=== PATIENT | female | born 1965 | race African-American/Black ===

== ENCOUNTER 2020-01-14 11:28 | Emergency (ER) | payer OTHER, SELFPAY ==
[2020-01-14 11:53] VITALS: BP 151/93; PULSE 81; RESP 18; TEMP 36.4; O2SAT 100
--- NOTE | 2020-01-14 12:14 | ED.BACK ---
HPI - Back Pain/Injury General Chief Complaint: Back Pain/Injury Stated Complaint: Severe back pain Time Seen by Provider: 01/14/20 12:14 Source: patient Mode of arrival: ambulatory Limitations: no limitations History of Present Illness HPI Narrative: Gail Cavanaugh is a 54 yo female with a PMH of HTN, lupus, who comes to express care with lower back pain that she is attributing to a lupus flareup. She has had this lower back pain since yesterday morning. Denies any dysuria. she had her last flare last month and received medication for her primary care physician. Related Data Home Medications Medication Instructions Recorded Confirmed hydroxychloroquine 01/14/20 lisinopril-hydrochlorothiazide tablet 01/14/20 Allergies Allergy/AdvReac Type Severity Reaction Status Date / Time No Known Allergies Allergy Verified 01/14/20 11:51 Review of Systems Review of Systems: Narrative: CONSTITUTIONAL: Denies fever, chills, sweats. EYES: Denies visual changes, redness, discharge. ENT: Denies rhinorrhea, congestion, sore throat, otalgia. CARDIOVASCULAR: Denies chest pain, palpitations, edema. RESPIRATORY: Denies dyspnea, wheezing, cough GASTROINTESTINAL: Denies abdominal pain, nausea, vomiting, diarrhea. GENITOURINARY: Denies dysuria, hematuria, abnormal discharge SKIN: Denies rash or itching. NEUROLOGIC: Denies numbness, or focal weakness. PSYCHIATRIC: Denies anxiety or depression. Lower back pain is attributed to a lupus flareup- denies any dysuria PMFSH Past Medical History Medical History HTN (hypertension) Lupus Family History Family History (Updated 01/14/20 @ 12:24 by Wanda Iverson CNP) Mother Ovarian cancer Comments At time of signature, I agree with nursing past medical, surgical, social and family history. There is no relevant family history pertinent to the presenting complaint. Exam Narrative: Exam Narrative: GENERAL: This is a well-nourished, well-developed patient, in moderate distress. HEAD: normocephalic, atraumatic. EYES: Sclera clear/white. Vision is grossly intact. EARS: External ears normal, Hearing grossly intact. NOSE: External nose normal without nasal discharge, nares without redness, no rhinorrhea. THROAT: Mucous membranes moist, NECK: Neck supple, CARDIOVASCULAR: Regular rate and rhythm without murmurs, gallops, or rubs. RESPIRATORY: Clear to auscultation. Breath sounds equal bilaterally. No wheezes, rales, or rhonchi. GASTROINTESTINAL: Abdomen soft, SKIN: warm, intact with no suspicious lesions or rash, good texture and turgor. NEURO: awake, alert, and oriented to person, place and time. There were no obvious focal neurologic abnormalities. Steady gait EXTREMITIES: Normal range of motion. BACK: tender without deformity- pain with twisting and able to bend forward but hurts as stands up Course Course Emergency Course: Patient is here with lower back pain that started yesterday-has history of lupus flares Given 60 mg of prednisone here plan is to give Medrol Dosepak as well as baclofen. with pain on twisting, can't exclude muscular origin of pain. Discussed with patient limitations of using steroids on a regular basis and that she should get additional steroids for lupus from her primary care physician who is treating her lupus Follow-up with primary care Vital Signs Vital signs: Vital Signs Temperature 97.6 F 01/14/20 11:53 Pulse Rate 81 01/14/20 11:53 Respiratory Rate 18 01/14/20 11:53 Blood Pressure 151/93 H 01/14/20 11:53 Pulse Oximetry 100 01/14/20 11:53 Temperature 97.6 F 01/14/20 11:53 Pulse Rate 81 01/14/20 11:53 Respiratory Rate 18 01/14/20 11:53 Blood Pressure 151/93 H 01/14/20 11:53 Pulse Oximetry 100 01/14/20 11:53 MDM - Back Pain/Injury Differential Diagnosis Differential diagnosis: Likely sciatica and other (Lupus flare) Discharge Plan Discharge Clinical Impr
[2020-01-14] MEDS: predniSONE 20 MG TABLET 60 MG PO (12:31)
== END 2020-01-14 12:51 | disposition home or self-care (01) ==
PROVIDERS: Emergency Provider Nurse Practitioner; PCP Internal Medicine
DX: M54.5 Low back pain (principal); I10 Essential (primary) hypertension
CPT/HCPCS: 99213; G0463; J7512

== ENCOUNTER 2020-03-12 11:11 | Outpatient (NON) | payer OTHER, SELFPAY ==
[2020-03-12 23:32] LABS: SARS-CoV-2 RNA PCR Negative
== END 2020-03-12 11:12 ==
PROVIDERS: PCP Internal Medicine; Visit Provider Internal Medicine
DX: R53.83 Other fatigue (principal); R68.83 Chills (without fever); Z20.828 Contact with and (suspected) exposure to other viral communicable diseases
CPT/HCPCS: 87635; C9803; U0003

== ENCOUNTER 2020-06-12 09:34 | Emergency (ER) | payer OTHER, SELFPAY ==
--- NOTE | ~2020-06-12 | XR_ITS ---
EXAMINATION: XR chest 2V EXAM DATE: 06/12/2020 10:00 INDICATION: Midsternal chest pain since Wednesday. TECHNIQUE: Frontal and lateral projections of the chest obtained and reviewed. There is no prior leila dy for comparison. FINDINGS: The lungs are clear. There are no pleural effusions. The cardiomediastinal silhouette is within normal limits. There is no pneumothorax suspected. The bones and soft tissues are unremarkab le. IMPRESSION: No acute cardiopulmonary findings. Reviewed, dictated and finalized at location B. HOLOGY INTERN
[2020-06-12 09:40] VITALS: BP 151/93; PULSE 95; RESP 19; TEMP 36.8; O2SAT 100
--- NOTE | 2020-06-12 09:40 | ECG_ITS ---
Measurements Intervals [place] Rate: 92 P: 33 MN: 132 QRS: 39 QRSD: 107 T: 28 QT: 289 QTc: 357 Interpretive Statements SINUS RHYTHM NONSPECIFIC T-WAVE ABNORMALITY- DIFFUSE LEADS BORDERLINE ECG Electronically Signed On 06-12-2020 10:18:17 WEATHER CLERK by Caleb Fernandez D.O.
[2020-06-12 09:43] VITALS: PULSE 90
--- NOTE | 2020-06-12 10:00 | PC.NURSE ---
IV attempted x3 without success by multiple nurses, EDP aware and ok without IV at this time.
[2020-06-12] MEDS: ASPIRIN 81 MG CHEWABLE TABLET 324 MG PO (10:14)
[2020-06-12 10:29] LABS: Basophils Percent Auto 0.6 % (0.2-1.2); Eosinophils Absolute Auto 0.1 K/mm3 (0-0.3); Eosinophils Percent Auto 1.9 % (0-4.4); Immature Granulocyte Absolute 0.02 K/mm3 (0.00-0.031); Immature Granulocyte Percent A 0.4 % (0-0.5); Lymphocytes Absolute Auto 1.61 K/mm3 (0.9-3.2); Lymphocytes Percent Auto 30.6 % (18.3-44.2); Mean Corpuscular HGB Conc 33.3 g/dl (32-36); Mean Corpuscular Hemoglobin 33.1 pg (26-34); Mean Corpuscular Volume 99.3 fl (80-100); Mean Platelet Volume 10.6 fl (7.4-10.4); Monocytes Absolute Auto 0.5 K/mm3 (0.1-0.6); Monocytes Percent Auto 10.3 % (2.6-8.5); Neutrophils Percent Auto 56.2 % (45.5-73.1); Platelet Count Result 161 k/mm3 (150-375); Red Blood Count 4.23 M/mm3 (4.2-5.4); Red Cell Distribution Width 12.1 % (11.5-14.5); White Blood Count 5.3 K/mm3 (4.5-10.0)
[2020-06-12 10:39] LABS: INR 0.9; Prothrombin Time 12.8 Seconds (11.1-14.7)
[2020-06-12 10:40] LABS: Partial Thromboplastin Time 29.2 SECONDS (22.3-36.8)
[2020-06-12 10:41] LABS: Anion Gap 4 mmol/L (8-16); Blood Urea Nitrogen 16 mg/dL (7-17); Calcium 9.4 mg/dL (8.4-10.2); Carbon Dioxide 35 mmol/L (22-30); Chloride 102 mmol/L (98-107); Estimated CRCL calculation 42 ml/min; Estimated Glomerular Filt Rate 47; Glucose 81 mg/dL (65-105); Potassium 3.4 mmol/L (3.4-5.0); Sodium 141 mmol/L (137-145)
[2020-06-12 10:54] LABS: Troponin I 0.034 ng/mL (0.000-0.034)
[2020-06-12 11:11] VITALS: BP 146/79; PULSE 86; RESP 18; O2SAT 98
--- NOTE | 2020-06-12 11:54 | ED.CHESTPAIN ---
HPI - Chest Pain General Chief Complaint: Chest Pain Stated Complaint: cp/sob Time Seen by Provider: 06/12/20 09:37 History of Present Illness HPI narrative: Patient is a 54-year-old female who presents ER with intermittent chest pains the left side of her chest for the last 2 weeks. Worsened last night. Worse with direct palpation. No difficulty breathing. No runny nose/sore throat/productive cough. No history of coronary disease. Has not tried any pain medications. No exertional CP. W/o diaphoresis/n/v. Related Data Home Medications Medication Instructions Recorded Confirmed hydroxychloroquine 01/14/20 lisinopril-hydrochlorothiazide tablet 01/14/20 Allergies Allergy/AdvReac Type Severity Reaction Status Date / Time No Known Allergies Allergy Verified 06/12/20 09:44 Review of Systems Review of Systems: All systems reviewed & are unremarkable except as noted in HPI and below Constitutional: Constitutional: Denies chills, Denies fever(s) and Denies weakness ENT: Denies nasal congestion and Denies sore throat Cardiovascular: Cardiovascular: Reports chest pain, Denies rapid heart rate and Denies radiating jaw, neck or arm pain Respiratory: Respiratory: Denies cough, Denies dyspnea and Denies wheezing Gastrointestinal: Gastrointestinal: Denies abdominal pain, Denies nausea and Denies vomiting PMFSH Past Medical History Medical History HTN (hypertension) Lupus Family History Family History (Updated 01/14/20 @ 12:24 by Wanda Iverson CNP) Mother Ovarian cancer Exam Narrative: Exam Narrative: GENERAL: Well-appearing, well-nourished, and in no acute distress. HEAD: Normocephalic, atraumatic. CHEST: Clear to auscultation. No respiratory distress. Reproducible chest wall tenderness with light palpation to the left upper chest. HEART: Regular rate and rhythm. Normal peripheral pulses. ABDOMEN: Soft, nontender, nondistended. EXTREMITIES: Normal range of motion. No edema. SKIN: Warm, dry, no rash. NEURO:Alert and oriented x3. PSYCH: Normal mood and affect. Course Course Emergency Course: Atypical chest pain that is reproducible in the ED. Troponin negative. Discharge home with follow-up with PCP. Vital Signs Vital signs: Vital Signs Temperature 98.2 F 06/12/20 09:40 Pulse Rate 95 06/12/20 09:40 Respiratory Rate 19 06/12/20 09:40 Blood Pressure 151/93 H 06/12/20 09:40 Pulse Oximetry 100 06/12/20 09:40 Temperature 98.2 F 06/12/20 09:40 Pulse Rate 86 06/12/20 11:11 Respiratory Rate 18 06/12/20 11:11 Blood Pressure 146/79 H 06/12/20 11:11 Pulse Oximetry 98 06/12/20 11:11 MDM - Chest Pain Lab Data Result diagrams: 06/12/20 10:25 06/12/20 10:25 Labs: Lab Results 06/12/20 06/12/20 06/12/20 Range/Units 10:25 10:25 10:25 WBC 5.3 (4.5-10.0) K/mm3 RBC 4.23 (4.2-5.4) M/mm3 Hgb 14.0 (12.0-15.0) g/dL Hct 42.0 (37.0-47.0) % MCV 99.3 (80-100) fl MCH 33.1 (26-34) pg MCHC 33.3 (32-36) g/dl RDW 12.1 (11.5-14.5) % Plt Count 161 (150-375) k/mm3 MPV 10.6 H (7.4-10.4) fl Immature Gran % (Auto) 0.4 (0-0.5) % Neut % (Auto) 56.2 (45.5-73.1) % Lymph % (Auto) 30.6 (18.3-44.2) % [place] % (Auto) 10.3 H (2.6-8.5) % Eos % (Auto) 1.9 (0-4.4) % Baso % (Auto) 0.6 (0.2-1.2) % Lymph # (Auto) 1.61 (0.9-3.2) K/mm3 [place] # (Auto) 0.5 (0.1-0.6) K/mm3 Eos # (Auto) 0.1 (0-0.3) K/mm3 Baso # (Auto) 0.0 (0.0-0.1) K/mm3 Abs Immat Gran (auto) 0.02 (0.00-0.031) K/mm3 Absolute Neuts (auto) 3.0 (1.3-6.7) K/mm3 Absolute Nucleated RBC 0.0 (0.0-0.012) K/mm3 Nucleated RBC % 0.0 (0.0-0.2) % PT 12.8 (11.1-14.7) Seconds INR 0.9 APTT 29.2 (22.3-36.8) SECONDS Sodium 141 (137-145) mmol/L Potassium 3.4 (3.4-5.0) mmol/L Chloride 102 (98-107) mmol/L Carbon Dioxide 3
== END 2020-06-12 12:10 | disposition home or self-care (01) ==
PROVIDERS: Emergency Provider Emergency Medicine; PCP Internal Medicine
DX: R07.89 Other chest pain (principal); I10 Essential (primary) hypertension
CPT/HCPCS: 36415; 71046; 80048; 84484; 85025; 85610; 85730; 93005; 99284; A9270

== ENCOUNTER 2020-07-20 10:48 | Emergency (ER) | payer OTHER, SELFPAY ==
--- NOTE | ~2020-07-20 | XR_ITS ---
EXAMINATION: XR chest 1V portable DATE: 07/20/2020 12:07 INDICATION: Cough TECHNIQUE: frontal view of the chest was obtained. COMPARISON: Chest radiograph dated 06/12/2020 FINDINGS: The lungs remain clear with no focal airspace opacities, pulmonary edema, pleural effusion or pneumot horax. The cardiomediastinal silhouette is normal. Visualized bones and soft tissues are unremarkable . IMPRESSION: 1. No acute cardiopulmonary disease. Reviewed, dictated and finalized at location A.
[2020-07-20 11:06] VITALS: BP 144/97; PULSE 85; RESP 14; TEMP 37.2; O2SAT 100
--- NOTE | 2020-07-20 12:29 | ED.GENADULT ---
HPI - General Adult General Chief complaint: Upper Respiratory Infection Stated complaint: Possible covid reaction Time Seen by Provider: 07/20/20 11:18 Source: patient and family Mode of arrival: ambulatory Limitations: no limitations History of Present Illness HPI narrative: Patient is a 54-year-old female who presents with cough since receiving her second Covid vaccine earlier in the week patient notes nonproductive cough with frequent coughing causing irritation of the chest denies any fever chills nausea vomiting does note some slight rhinorrhea. Patient denies any dyspnea or other complaints or any history of cardiopulmonary disease has taken Mucinex with improvement and actually feels like she has improved every day Related Data Home Medications Medication Instructions Recorded Confirmed hydroxychloroquine 01/14/20 lisinopril-hydrochlorothiazide tablet 01/14/20 Allergies Allergy/AdvReac Type Severity Reaction Status Date / Time No Known Allergies Allergy Verified 07/20/20 11:08 Review of Systems Review of Systems: All systems reviewed & are unremarkable except as noted in HPI and below PMFSH Past Medical History Medical History HTN (hypertension) Lupus Family History Family History (Updated 01/14/20 @ 12:24 by Wanda Iverson CNP) Mother Ovarian cancer Exam Narrative: Exam Narrative: GENERAL: Well-appearing, well-nourished, and in no acute distress. HEAD: Normocephalic, atraumatic. EYES: PERRLA and EOMI. ENT: Nares clear, no rhinorrhea or epistaxis. Mucous membranes moist. CHEST: Clear to auscultation. No respiratory distress. No wheezes rales or rhonchi HEART: Regular rate and rhythm. No murmur heard. EXTREMITIES: Normal range of motion. No edema. SKIN: Warm, dry, no rash. NEURO: No focal deficits. Alert and oriented x3. PSYCH: Normal mood and affect. Course Course Emergency Course: Patient in the room no distress aware of case findings treatment plan and diagnosis agreeing to follow-up as instructed or to return if symptoms worsen or concerns. Patient with no pneumonia seen on exam normal vital signs will follow with primary care for further evaluation Vital Signs Vital signs: Vital Signs Temperature 98.9 F 07/20/20 11:06 Pulse Rate 85 07/20/20 11:06 Respiratory Rate 14 07/20/20 11:06 Blood Pressure 144/97 H 07/20/20 11:06 Pulse Oximetry 100 07/20/20 11:06 Temperature 98.9 F 07/20/20 11:06 Pulse Rate 85 07/20/20 11:06 Respiratory Rate 14 07/20/20 11:06 Blood Pressure 144/97 H 07/20/20 11:06 Pulse Oximetry 100 07/20/20 11:06 Medical Decision Making MDM Narrative Medical decision making narrative: ABCs and vital signs intact and stable patient with improving upper respiratory symptoms no pneumonia seen on exam or x-ray patient will be discharged home with outpatient follow-up patient did not wish for further evaluation and will follow with primary care and has been given reasons to return hemodynamically stable ABCs and vital signs intact and stable as noted Vital Signs Vital Signs: Vital Signs Temperature 98.9 F 07/20/20 11:06 Pulse Rate 85 07/20/20 11:06 Respiratory Rate 14 07/20/20 11:06 Blood Pressure 144/97 H 07/20/20 11:06 Pulse Oximetry 100 07/20/20 11:06 Temperature 98.9 F 07/20/20 11:06 Pulse Rate 85 07/20/20 11:06 Respiratory Rate 14 07/20/20 11:06 Blood Pressure 144/97 H 07/20/20 11:06 Pulse Oximetry 100 07/20/20 11:06 Imaging Data Radiologist's impression: ITS Impressions Chest X-Ray 07/20/20 12:18 IMPRESSION: 1. No acute cardiopulmonary disease. Discharge Plan Discharge Clinical Impression: Upper respiratory infection Patient Disposition: Home, Self-Care Condition: Stable Instructions: Antibiotic Form, Upper Respiratory Infection (ED) Additional Instructions: Follow up with your primary care pro
[2020-07-20 12:42] VITALS: BP 118/69; PULSE 59; RESP 20; O2SAT 100
== END 2020-07-20 12:43 | disposition home or self-care (01) ==
PROVIDERS: Emergency Provider Emergency Medicine; PCP Internal Medicine
DX: J06.9 Acute upper respiratory infection, unspecified (principal); I10 Essential (primary) hypertension
CPT/HCPCS: 71045; 99283

== ENCOUNTER 2020-12-24 11:39 | Emergency (ER) | payer OTHER, SELFPAY ==
--- NOTE | ~2020-12-24 | XR_ITS ---
XR foot LT min 3V 12/24/2020 12:01 Indication: Left toe pain after trauma Procedure: 4 views left foot Comparison: No prior studies for comparison. Findings: There is an oblique extra-articular fracture left second proximal phalanx with subtle overr iding of fracture fragments in approximately one half bone width lateral displacement. No other fract ure. Lisfranc joint intact. Mild soft tissue swelling. There is a side plate and screws transfixing t he distal fibula, partially visualized. Impression: 1: Oblique extra-articular displaced fracture left second proximal phalanx. Reviewed, dictated and finalized at location A. Impression: 1: Oblique extra-articular displaced fracture left second proximal phalanx.
[2020-12-24 11:48] VITALS: BP 149/77; PULSE 78; RESP 16; TEMP 36.1; O2SAT 98
--- NOTE | 2020-12-24 12:01 | ED.LOWEXIN ---
HPI - Extremity Injury (Lower) General Chief Complaint: Extremity Injury, Lower Stated Complaint: right 2nd digit toe Source: patient and RN notes reviewed Limitations: no limitations History of Present Illness HPI Narrative: The patient, previously mostly healthy, presents with left second toe pain. Patient stubbed her toe today on home furnishings, prior to arrival. She complains of mild to moderate pain that is worse with motion, better at rest; no bleeding, deformity but it is swollen Related Data Home Medications Medication Instructions Recorded Confirmed hydroxychloroquine 01/14/20 lisinopril-hydrochlorothiazide tablet 01/14/20 amlodipine 12/24/20 citalopram mg 12/24/20 zolpidem 12/24/20 Allergies Allergy/AdvReac Type Severity Reaction Status Date / Time No Known Allergies Allergy Verified 07/20/20 11:08 Review of Systems Review of Systems: General/Constitutional: No weight loss,fever Eyes: N0: Redness,discharge Ears/Nose/Throat: No: Epistaxis,ear discharge Respiratory: Denies: Hemoptysis Gastrointestinal: No Vomiting, Bleeding-rectal Skin: No Lumps, eruption Neurologic: No Focal Weakness,Sz Hematologic: Denies: Petechiae/Purpura Psychiatric: No: Suicida ideationl All Other Systems: Reviewed and Negative [facility] Past Medical History Medical History HTN (hypertension) Lupus Family History Family History (Updated 01/14/20 @ 12:24 by Wanda Iverson CNP) Mother Ovarian cancer Comments At time of signature, agree with nursing past medical, surgical, social and family history. There is no relevant family history pertinent to the presenting complaint Exam Narrative: General Appearance: Well appearing, Conjunctiva clear Mouth/Throat: Normal appearing, Normal lips, Supple Respiratory: Airway patent, No respiratory distress MS-toe: Normal strength (mostly intact, limited flexion/extension by pain), Tenderness (proximal phalanges with mild decreased ROM), Swelling (proximal), Other (no anterior drawer, no collateral laxity) Skin: Warm, Dry, Normal color Neurological: A&O x3, Normal affect Course Course Emergency Course: Films visualized, interpreted by radiologist, agree, ABnormal see report Vital Signs Vital signs: Vital Signs Temperature 96.9 F L 12/24/20 11:48 Pulse Rate 78 12/24/20 11:48 Respiratory Rate 16 12/24/20 11:48 Blood Pressure 149/77 H 12/24/20 11:48 Pulse Oximetry 98 12/24/20 11:48 Temperature 96.9 F L 12/24/20 11:48 Pulse Rate 78 12/24/20 11:48 Respiratory Rate 16 12/24/20 11:48 Blood Pressure 149/77 H 12/24/20 11:48 Pulse Oximetry 98 12/24/20 11:48 Discharge Plan Discharge Clinical Impression: Fracture of left toe Qualifiers: Encounter type: initial encounter Toe: lesser toe Fracture type: closed Phalanx: proximal Fracture alignment: displaced Qualified Code(s): S92.512A - Displaced fracture of proximal phalanx of left lesser toe(s), initial encounter for closed fracture Patient Disposition: Home, Self-Care Condition: Stable Instructions: Toe Fracture (ED) Additional Instructions: You may use nabeel tape and pain meds See podiatry in follow-up Prescriptions: New acetaminophen-codeine 300-30 mg tablet 1 - 1.5 tablet PO Q8H PRN (Reason: pain) Qty: 15 RF: 0 No Action amlodipine 5 mg tablet RF: 0 citalopram 20 mg tablet RF: 0 zolpidem 10 mg tablet RF: 0 lisinopril-hydrochlorothiazide 20-12.5 mg tablet RF: 0 hydroxychloroquine 200 mg tablet RF: 0 Follow-up/Referrals: Damian,Ramos Aranda MD [Primary Care Provider] -
== END 2020-12-24 12:10 | disposition home or self-care (01) ==
PROVIDERS: Emergency Provider Emergency Medicine; PCP Internal Medicine
DX: S92.512A Displaced fracture of proximal phalanx of left lesser toe(s), initial encounter for closed fracture (principal); W22.03XA Walked into furniture, initial encounter; I10 Essential (primary) hypertension; M32.9 Systemic lupus erythematosus, unspecified
CPT/HCPCS: 73630; 99214; G0463

== ENCOUNTER 2022-03-17 14:44 | Emergency (ER) | payer OTHER, SELFPAY ==
[2022-03-17 14:47] VITALS: BP 127/78; PULSE 99; RESP 16; TEMP 36.7; O2SAT 100
== END 2022-03-17 15:14 | disposition left against medical advice (07) ==
LOC: ANHED 15:32
PROVIDERS: PCP Internal Medicine
DX: R11.2 Nausea with vomiting, unspecified (principal)
CPT/HCPCS: 99199

== ENCOUNTER 2023-02-07 09:43 | Emergency (ER) | payer OTHER, SELFPAY ==
--- NOTE | ~2023-02-07 | XR_ITS ---
EXAMINATION: XR chest 2V DATE: 02/07/2023 10:13 INDICATION: Productive cough and shortness of breath TECHNIQUE: PA and lateral views of the chest are obtained. COMPARISON: 07/20/2020 FINDINGS: The lungs are free of acute opacities. No pleural effusion or pneumothorax. The cardiomedia stinal silhouette is normal. The visualized bones and soft tissues are unremarkable. IMPRESSION: 1. No acute cardiopulmonary abnormality. Reviewed, dictated and finalized at location F. [employer] REPAIRER [employer]
[2023-02-07 09:47] VITALS: BP 131/101; PULSE 91; RESP 18; TEMP 36.2; O2SAT 98
--- NOTE | 2023-02-07 10:05 | ECG_ITS ---
Measurements Intervals [place] Rate: 68 P: 24 MO: 136 QRS: 32 QRSD: 86 T: -1 QT: 311 QTc: 331 Interpretive Statements SINUS RHYTHM NONSPECIFIC T-WAVE ABNORMALITY- ANTEROLAT/INF LEADS BASELINE ARTIFACT- I, II, AVR, V1, V5 BORDERLINE ECG COMPARED TO ECG 06/12/2020 09:44:47 NO SIGNIFICANT CHANGES Electronically Signed On 02-07-2023 16:37:20 SWEAT [employer] by Caleb Fernandez D.O.
[2023-02-07 10:28] VITALS: BP 122/109
[2023-02-07 10:30] LABS: Basophils Percent Auto 0.6 % (0.2-1.2); Eosinophils Absolute Auto 0.3 K/mm3 (0-0.3); Eosinophils Percent Auto 4.2 % (0-4.4); Hematocrit 36.3 % (37.0-47.0); Hemoglobin 11.3 g/dL (12.0-15.0); Immature Granulocyte Absolute 0.05 K/mm3 (0.00-0.031); Immature Granulocyte Percent A 0.8 % (0-0.5); Lymphocytes Percent Auto 17.2 % (18.3-44.2); Mean Corpuscular HGB Conc 31.1 g/dl (32-36); Mean Corpuscular Hemoglobin 33.3 pg (26-34); Mean Corpuscular Volume 107.1 fl (80-100); Mean Platelet Volume 10.5 fl (7.4-10.4); Monocytes Absolute Auto 0.6 K/mm3 (0.1-0.6); Neutrophils Absolute Auto 4.3 K/mm3 (1.3-6.7); Neutrophils Percent Auto 67.2 % (45.5-73.1); Platelet Count Result 172 k/mm3 (150-375); Red Blood Count 3.39 M/mm3 (4.2-5.4); Red Cell Distribution Width 13.1 % (11.5-14.5); White Blood Count 6.4 K/mm3 (4.5-10.0)
[2023-02-07] MEDS: SODIUM CHLORIDE 0.9% IV 500 ML 999 ML IV CONT (10:30)
[2023-02-07] MEDS: ACETAMINOPHEN 325 MG TABLET 650 MG PO (10:30)
[2023-02-07 10:31] VITALS: BP 122/109; PULSE 77; RESP 16; O2SAT 100
[2023-02-07 10:32] LABS: Influenza A QL RT-PCR Negative (Negative); Influenza B QL RT-PCR Negative (Negative); SARS-CoV-2 RNA PCR Negative (Negative)
[2023-02-07 10:39] LABS: Anion Gap 9 mmol/L (8-16); Blood Urea Nitrogen 26 mg/dL (7-17); Calcium 9.3 mg/dL (8.4-10.2); Carbon Dioxide 25 mmol/L (22-30); Chloride 104 mmol/L (98-107); Estimated CRCL calculation 31 ml/min; Estimated Glomerular Filt Rate 33; Glucose 95 mg/dL (65-110); Potassium 4.1 mmol/L (3.4-5.0); Sodium 138 mmol/L (137-145)
--- NOTE | 2023-02-07 10:48 | ED.URI ---
HPI - URI/Sore Throat General Chief Complaint: Upper Respiratory Infection Stated Complaint: Cough/SOB Time Seen by Provider: 02/07/23 09:47 Source: patient Mode of arrival: ambulatory Limitations: no limitations History of Present Illness HPI Narrative: Patient presents with complaint of cough and body aches starting 3 days ago. Symptoms started while she was on vacation in [facility]. She states she is sore all over though it is generalized and mild. COugh is productive of yellow/brown sputum but otherwise denies benjamin hemoptysis. After she started coughing she developed chest pain. She returned from her trip yesterday, flying there and to return. No known sick contacts but was in an airplane and around others while vacationing. Denies lower extremity edema. No fevers but has felt chilled. No rhinorrhea or sore throat. She has been vaccinated x2 plus booster for covid. Has not received influenza vaccination for this season. Related Data Home Medications Medication Instructions Recorded Confirmed hydroxychloroquine 200 mg tablet 01/14/20 lisinopril 20 tablet 01/14/20 mg-hydrochlorothiazide 12.5 mg tablet amlodipine 5 mg tablet 12/24/20 citalopram 20 mg tablet mg 12/24/20 zolpidem 10 mg tablet 12/24/20 Allergies Allergy/AdvReac Type Severity Reaction Status Date / Time No Known Allergies Allergy Verified 02/07/23 09:44 [facility] Past Medical History Medical History HTN (hypertension) Lupus Family History Family History (Updated 01/14/20 @ 12:24 by Wanda Iverson, [employer]) Mother Ovarian cancer Exam Const: General: no acute distress (but appears uncomfortable) and alert; No confusion or diaphoretic Nutritional Appearance: well nourished Orientation/consciousness: patient oriented x3 Limitations: no limitations HENMT: Head: normal to inspection Ears: external ears normal Other: gross auditory acuity intact; tacky mucous membranes Resp: Effort & Inspection: normal respiratory effort, not labored, no retractions, not tachypneic and no use of accessory muscles Auscultation: clear to auscultation bilaterally, no crackles, no rales, no rhonchi and no wheezes Other: patient is observed intermittently coughing during exam Cardio: Rate: regular rate, not bradycardic and not tachycardic Rhythm: regular rhythm Skin: General skin exam: normal color, no jaundice and no pallor Wounds: no wounds Neuro: General: patient oriented x3, moves all extremities and no focal motor deficits Gait exam (Neuro): Normal gait present (observed standing/bearing weight and walking in room) Extrem: Other: no lower extremity edema Psych: Mental Status: mental status grossly normal Affect: normal affect, No Sad affect present and No Anxious affect present Attitude: cooperative Course Vital Signs Vital signs: Vital Signs Temperature 97.2 F L 02/07/23 09:47 Pulse Rate 91 02/07/23 09:47 Respiratory Rate 18 02/07/23 09:47 Blood Pressure 131/101 H 02/07/23 09:47 Pulse Oximetry 98 02/07/23 09:47 Oxygen Delivery Room Air 02/07/23 09:47 Temperature 98 F 02/07/23 11:45 Pulse Rate 62 02/07/23 11:45 Respiratory Rate 17 02/07/23 11:45 Blood Pressure 120/64 02/07/23 11:45 Pulse Oximetry 100 02/07/23 10:31 Oxygen Delivery Room Air 02/07/23 09:47 MDM - URI/Sore Throat MDM Narrative Medical decision making narrative: Patient presents with cough and myalgias of 3 days duration. Started experiencing symptoms while vacationing in [facility], returned yesterday. Developed chest pain after started coughing. I suspect that her symptoms are viral though her cough with reported brown sputum may represent hemoptysis and she did recently travel thus will pursue D-dimer in addition to other lab work. D-dimer is slightly elevated, but PE excluded based on YEARS algorithm given patient is not , without clinical signs o
[2023-02-07 10:57] LABS: Troponin I 0.029 ng/mL (0.000-0.034)
[2023-02-07 11:01] VITALS: BP 119/61; PULSE 68; RESP 15
[2023-02-07 11:45] VITALS: BP 120/64; PULSE 62; RESP 17; TEMP 36.6
== END 2023-02-07 11:58 | disposition home or self-care (01) ==
PROVIDERS: Emergency Provider Student in an Organized Health Care Education/Training Program; PCP Internal Medicine
DX: N17.9 Acute kidney failure, unspecified (principal); I12.9 Hypertensive chronic kidney disease with stage 1 through stage 4 chronic kidney disease, or unspecified chronic kidney disease; N18.9 Chronic kidney disease, unspecified; B34.9 Viral infection, unspecified; D53.9 Nutritional anemia, unspecified; Z20.822 Contact with and (suspected) exposure to COVID-19
CPT/HCPCS: 36415; 71046; 80048; 84484; 85025; 85380; 87636; 93005; 96360; 99284; A9270; J7040

== ENCOUNTER 2024-12-05 14:30 | Emergency (ER) | payer OTHER, SELFPAY ==
[2024-12-05 14:34] VITALS: BP 136/76; PULSE 95; RESP 16; TEMP 36.5; O2SAT 99
--- OUTSIDE RECORDS SUMMARY | 2024-12-05 14:43 | XMS_ITS | Encounter Summary ---
Author Organization [facility] Address [address] [facility] [place] [address] Care Team Providers Care Single Resource Boss Name Role Phone Ramos Salgado MD Primary Care Provider [phone] Encounter Details Date Type Department Care Team (Late Contact Info) Description 05/25/2024 Telephone [facility] - Centralized Scheduling [facility] [place] [phone] Elias Brady MD [address] [place] [phone] Social History Tobacco Use Types Packs/Day Years Used Date Smoking Tobacco: Never Smokeless Tobacco: Never Alcohol Use Standard Drinks/Week Comments Never 0 (1 standard drink = 0.6 oz pur e alcohol) PHQ-2 Answer Date Recorded PHQ2 TOTAL SCORE 2 09/23/2022 Comments No Sex and Gender Information Value Date Recorded Sex Assigned at Not on file Legal Sex Female 12:00 PM CDT Gender Identity Not on file Sexual Orientation Not on file documented as of this encounter Plan of Treatment Upcoming Encounters Date Type Department Care Team ([facility] Contact Info) Description 01/04/2025 8:30 AM CDT Office Visit [facility] - Nephrology [address] [place] [address], [place] [phone] Christiano Harrison MD [address] [place] [address] [place] [address] 02/14/2025 1:40 PM POWER SAW MECHANIC Office Visit [facility] - Dermatology [address] [place] [address], [place] [phone] Dilcia Schumacher MD [address] [place] [address] [address]L [place] [phone] 03/06/2025 3:00 PM POWER SAW MECHANIC Office Visit [facility] - Neurology [address] [place] [address], [place] [phone] Krystle San MD [address] [place] [address] [address] [place] [phone] documented as of this encounter Visit Diagnoses Not on filedocumented in this encounter Care Teams Single Resource Boss Relationship Specialty Start Date End Date Ramos Salgado MD [address] [place] [id number] PCP - General 11/27/20 documented as of this encounter
--- OUTSIDE RECORDS SUMMARY | 2024-12-05 14:43 | XMS_ITS | Encounter Summary ---
Author Organization [facility] Address [facility] [place] [address] Care Team Providers Care Dobby Loom Weaver Name Role Phone Ramos Salgado MD Primary Care Provider [phone] Encounter Details Date Type Department Care Team (Latest Contact Info) Description 02/08/2018 Abstract [facility] Eric Yan MD Social History Tobacco Use Types Packs/Day Years Used Date Smoking Tobacco: Never Assessed Comments Unknown Sex and Gender Information Value Date Recorded Sex Assigned at Female 03/10/2018 11:16 AM FORGING ROLL OPERATOR Legal Sex Female 7:29 PM CDT Gender Identity Female 03/10/2018 11:16 AM FORGING ROLL OPERATOR Sexual Orientation Straight 03/10/2018 11 :16 AM FORGING ROLL OPERATOR documented as of this encounter Plan of Treatment Upcoming Encounters Date Type Department Care Team (Late st Contact Info) Description 12/07/2024 1:00 PM CDT Office Visit [facility] Family & Internal Medicine [address] [phone] Gabbie Marr, DO [address] [address] 12/13/2024 10:00 AM CDT Office Visit [facility] Family & Internal Medicine [address] [phone] Ramos Salgado MD [address] [place] [address] 12/18/2024 1:00 PM CDT Hospital Encounter [facility] [address] Hugo Ren MD [address] [address] 12/18/2024 1:00 PM CDT - 12/18/2024 1:30 PM CDT Surgery [facility] [place] [address] Hugo Ren MD 3 [facility] [address] COLONOSCOPY SCREENING Scheduled Procedures Name Priority Associated Diagnoses Date/Ti me COLONOSCOPY SCREENING Dysphagia, unspecified type Chronic GERD Screening for colon cancer 12/18/2024 1:00 PM CDT EGD DX WITH BRUSH/WASH Dysphagia, unspecified type Chronic GERD Screening for colon cancer 12/18/2024 1:00 PM CDT documented as of this encounter Visit Diagnoses Not on filedocumented in this encounter Additional Health Concerns Infection Onset Date Last Indicated Resolved Time COVID-19 Rule Out 10/02/2019 10/02/2019 10/12/2019 10:21 AM CDT COVID-19 Rule Out 03/11/2020 03/12/2020 03/21/2020 3:32 PM FORGING ROLL OPERATOR COVID-19 Rule Out 07/24/2020 07/24/2020 07/27/2020 12:19 PM CDT COVID-19 Rule Out 11/21/2020 11/21/2020 11/23/2020 2:04 AM CDT documented as of this encounter Care Teams Dobby Loom Weaver Relationship Specialty Start Date End Date Ramos Salgado MD [address] [place] [address] PCP - General 10/20/16 documented as of this encounter
--- OUTSIDE RECORDS SUMMARY | 2024-12-05 14:43 | XMS_ITS | Clinical Summary ---
Author Organization [facility] Address [facility] [place] [address] Care Team Providers Care Milled Rice Broker Name Role Phone Ramos Salgado MD Primary Care Provider [phone] Allergies No known active allergies Medications tacrolimus (PROTOPIC) 0.1 % ointment APPLY TO EYELIDS UP TO TWO TIMES DAILY NEEDED 04/09/19 23 Active lisinopril-hydroC HLOROthiazide (ZESTORETIC) 20-12.5 MG tabletIndications :Benign essential hypertension Take 1 tablet by mouth once daily 90 tablet 3 11/29/19 24 Active gabapentin (NEURONTIN) 300 MG capsule Take 2 capsules (600 mg total) by mouth. 03/30/20 24 Active DULoxetine (CYMBALTA) 60 MG capsule Take 1 capsule (60 mg total) by mouth daily. 03/07/20 24 Active dapsone 100 MG tabletIndications :Other systemic lupus erythematosus with other organ involvement (CMS/HCC HHS/HCC) Take 1 tablet (100 mg total) by mouth daily. 30 tablet 3 06/13/19 25 Active amLODIPine (NORVASC) 5 MG tabletIndications :Benign essential hypertension Take 1 tablet by mouth once daily 90 tablet 1 06/20/19 25 Active pantoprazole EC (PROTONIX) 40 MG tabletIndications :Dysphagia, unspecified type,Chronic GERD Take 1 tablet (40 mg total) by mouth daily. 90 tablet 1 08/22/19 25 Active hydroxychloroquin e (PLAQUENIL) 200 MG tabletIndications :Other systemic lupus erythematosus with other organ involvement ([facility]/HCC [facility]) Take 1 tablet by mouth twice daily 180 tablet 10/06/19 25 Active zolpidem (AMBIEN) 10 MG tabletIndications :Insomnia, unspecified type TAKE 1 TABLET BY MOUTH AT BEDTIME NEEDED FOR SLEEP 30 tablet 11/18/19 25 Active zolpidem (AMBIEN) 10 MG tabletIndications :Insomnia, unspecified type TAKE 1 TABLET BY MOUTH AT BEDTIME NEEDED FOR SLEEP 30 tablet 10/20/19 25 025 Discontinued Active Problems Problem Noted Date Diagnosed Date Dysphagia, unspecified type 08/21/2024 Chronic GERD 08/21/2024 Anemia, macrocytic 06/07/2023 Abnormal serum protein electrophoresis MDD (major depressive disorder), recurrent episo de, mild 01/01/2021 Overview (12/13/2023): Last Assessment & Plan: Condition: stable No recent mental health visit. Advised to follow up Medications: Taking medications as prescribed If taking medications, do not stop treatment without consulting healthcare provider. If symptoms worsen or do not improve/stabilize, notify health care provider right away. If thoughts of harming self or others notify health care provider immediately &/or seek urgent/emergent care including calling Suicide Hotline ( ) or 911. Follow up in if symptoms worsen or fail to improve with Psychologist/Counselor/SupportGroup/Psychiatrist and PCP Last Assessment & Plan: Condition: stable No recent mental health visit. Advised to follow up Medications: Taking medications as prescribed If taking medications, do not stop treatment without consulting healthcare provider. If symptoms worsen or do not improve/stabilize, notify health care provider right away. If thoughts of harming self or others notify health care provider immediately &/or seek urgent/emergent care including calling Suicide Hotline ( ) or 911. Follow up in if symptoms worsen or fail to improve with Psychologist/Counselor/SupportGroup/Psychiatrist and PCP Last Assessment & Plan: Condition: stable Source of diagnosis: Review of systems, Medication and Diagnosis confirmed from PCP record and currently active Follow up in: one month Acute bilateral low back pain without sciatica 0 07/11/2018 Low vitamin D level 08/09/2017 Insomnia, unspecified type 08/01/2014 Overview (12/13/2023): Last Assessment & Plan: Condition: stable Source of diagnosis: Review of systems, Medication and Diagnosis confirmed from PCP record and currently active Follow up in: if symptoms worsen or fail to improve 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 Overview (12/13/2023): Last Assessment & Plan: Condition: stable Source of diagnosis: Physical Exam, Medication and Diagnosis confirmed from PCP record and currently active Follow up in: if symptoms worsen or fail to improve Peripheral neuropathy 04/27/2013 Systemic lupus erythematosus, unspecified ([facility]/H CC [facility]) 10/29/2011 Overview (12/13/2023): Last Assessment & Plan: Condition: stable Source of diagnosis: Review of systems, Medication, Diagnosis confirmed from PCP record and currently active and Diagnosis confirmed from specialist record and currently active Follow up in: three months with Soa Architect Benign essential hypertension 10/21/2011 Overview (12/13/2023): Last Assessment & Plan: Condition: stable Source of diagnosis: Vital Signs, Medication and Diagnosis confirmed from PCP record and currently active Discussed target blood pressure. Continue medication as prescribed from PCP/specialist. Take medications at the same time every day. Lifestyle modification advised: DASH diet, reduce stress/anxiety, discussed health weight management, activity as tolerated or advised from PCP, try to avoid alcohol and nicotine. Follow up in: three months Last Assessment & Plan: Condition: stable Discussed target blood pressure. Continue medication as prescribed from PCP/specialist. Take medications at the same time every day. Lifestyle modification advised: DASH diet, reduce stress/anxiety, discussed health weight management, activity as tolerated or advised from PCP, try to avoid alcohol and nicotine. Follow up in: if symptoms worsen or fail to improve Resolved Problems Problem Noted Date Diagnosed Date Resolved Date Screening for colon cancer 08/21/2024 0 08/28/2024 Screening for colon cancer 08/21/2024 0 12/04/2024 BMI 29.0-29.9,adult 08/16/2017 12/13/19 24 Colon cancer screening 08/06/201612/14 Depression 07/03/2014 12/13/2023 Encounter for preventive health examination 10/21/2011 12/15/2019 Encounters Date Type Department Care Team Description 12/05/[address], [address] [place] [phone] Hugo Ren MD Appointment Request 10/31/[address], [address] [place] [address] Hugo Ren MD Prior Authorization (Colonoscopy [id number]/EGD [id number]) 09/18/2024 Telephone [facility] Family & Internal Medicine [address] [phone] Ramos Salgado MD Medication Request from Last 3 Months Immunizations Immunization Administration Dates Next Due Fluzone 6 Months+ Quad (0.5 mL Prefilled Syringe) 02/11/2021 Influenza (Generic) 04/27/2013,04/15/2012 Influenza Adult (Generic) 02/11/2017,04/02/2015, 01/09/2014 PFIZER COVID-19 (ORIGINAL FO RMULATION, PURPLE CAP) mRNA, LNP-S, PF, 30 MCG/0.3 ML DOSE 02/11/2021,07/15/2020,06/21/2020 Pneumococcal (Prevnar 20) 06/12/2024 Shingrix 04/08/2022,12/03/2021 Tdap (Generic) 12/03/2021 Family History Medical History Relation Comments Cancer Mother Diabetes Mother Heart Other Stroke Other Thyroid Other Relation Status Comments Mother Other Alive Social History Tobacco Use Types Packs/Day Years Used Date Smoking Tobacco: Never Smokeless Tobacco: Never Tobacco Cessation:Counseling Given: Yes Alcohol Use Standard Drinks/Week Comments No 0 (1 standard drink = 0.6 oz pur e alcohol) AUDIT-C Answer Date Recorded Frequency of Alcohol Consumption Never 09/08/2018 Average Number of Drinks Not on file 019 Frequency of Binge Drinking Not on file 09/2018 PHQ-2 Answer Date Recorded Patient Health Questionnaire-2 Score 0 08/21/2024 Comments No Sex and Gender Information Value Date Recorded Sex Assigned at Female 03/10/2018 11:16 AM BIZTALK CONSULTANT Legal Sex Female 7:29 PM CDT Gender Identity Female 03/10/2018 11:16 AM BIZTALK CONSULTANT Sexual Orientation Straight 03/10/2018 11 :16 AM BIZTALK CONSULTANT Last Filed Vital Signs Vital Sign Reading Time Taken Comments Blood Pressure 131/67 08/21/2024 11:25 AM CDT Pulse 68 08/21/2024 11:25 AM CDT Temperature 36.9 C (98.5 F) 08/21/2024 11:25 AM CDT Respiratory Rate 18 08/21/2024 11:25 AM CDT Oxygen Saturation 97% 08/21/2024 11:25 AM CDT Inhaled Oxygen Concentration - - Weight 77.7 kg (171 lb 6.4 oz) 08/21/2024 11:25 AM CDT Height 165.1 cm (5' 5) 08/21/2024 11:25 AM CDT Body Mass Index 28.52 08/21/2024 11:25 AM CDT Plan of Treatment Upcoming Encounters Date Type Department Care Team (Late st Contact Info) Description 12/07/2024 1:00 PM CDT Office Visit [facility] Medical [facility] Family & Internal Medicine [address] [phone] Gabbie Marr, DO [address] [address] 12/13/2024 10:00 AM CDT Office Visit [facility] Family & Internal Medicine - [place] [address] [place] [address] Ramos Salgado MD [address] [place] [address] 12/18/2024 1:00 PM CDT Hospital Encounter [facility] [place] [address] Hugo Ren MD [address] [address] 12/18/2024 1:00 PM CDT - 12/18/2024 1:30 PM CDT Surgery [facility] [place] [address] Hugo Ren MD [address] [address] COLONOSCOPY SCREENING Scheduled Procedures Name Priority Associated Diagnoses Date/Ti me COLONOSCOPY SCREENING Dysphagia, unspecified type Chronic GERD Screening for colon cancer 12/18/2024 1:00 PM CDT EGD DX WITH BRUSH/WASH Dysphagia, unspecified type Chronic GERD Screening for colon cancer 12/18/2024 1:00 PM CDT Health Maintenance Due Date Last Done Comments Cervical Cancer Screening Pa p Smear (Age 30 to 64) Every 3 Years 1964 Hepatitis C 1982 Cervical Cancer Screening Pa p with HPV Testing (Age 30 to 64) Every 5 Years 1994 Cervical Cancer Screening wi th HPV 1994 Mammogram Screening 12/12/2021 12/13/2019, 12/13/2019, 01/19/2015 Annual Physical 10/28/2022 10/28/2021 RSV Immunization or 60+ Years (1 - Risk 60-74 years 1-dose series) 2024 COVID-19 Vaccine (2024-2 6 season) 2024 02/11/2021, 07/15/2020, 06/21/2020 Colorectal Cancer Screening Colonoscopy (10 Years) 09/18/2026 09/18/2016 DTaP, Tdap and Td Vaccines ( 2 - Td or Tdap) 12/04/2031 12/03/2021 Zoster Vaccines Completed 04/08/2022, 12/03/2021 Pneumococcal Vaccine: 50+ Years Completed 06/12/2024 PHQ-2 (Physician Nikolai) Completed 08/21/2024 Meningococcal B Vaccine Aged Out No l onger eligible based on patient's age to complete this topic Meningococcal Vaccine Aged Out No chetan kirti eligible based on patient's age to complete this topic RSV Immunizations Under 20 Months Aged Out No longer eligible b ased on patient's age to complete this topic Goals Goal Patient Goal Type Associated Problems Recent Progress Patient-Stated? Author Autogenera abdiel Goal Care Plan Autogenerated Problem No Anuradha Yarbrough, POCKET STITCHER Procedures Procedure Name Priority Date/Time Associated Diagnosis Comments MAMMOGRAM GENERIC (SCAN ORDER) 12/13/2019 COLONOSCOPY GENERIC (SCAN ORDER) 09/18/2016 from Last 3 Months or Most Recently Relevant to Health Maintenance Results * MAMMOGRAM GENERIC (12/13/2019) Anatomical Region Laterality Modality Other 12/13/2019 Narrative 12/13/2019 Ordered by an unspecified provider. us Documents Scanned SCANNING Final Result * COLONOSCOPY GENERIC (09/18/2016) 09/18/2016 Narrative 09/18/2016 Ordered by an unspecified provider. us Documents Scanned SCANNING Final Result from Last 3 Months or Most Recently Relevant to Health Maintenance Additional Health Concerns Active Problems Noted Date Diagnosed Date Autogenerated Problem 08/21/2024 Insurance BLOOM Care Teams Milled Rice Broker Relationship Specialty Start Date End Date Ramos Salgado MD [address] [place] [address] PCP - General 10/20/16
--- OUTSIDE RECORDS SUMMARY | 2024-12-05 14:43 | XMS_ITS | Clinical Summary ---
Author Organization [facility] [employer] Address [address] [place] [address] Care Team Providers Care Mortgage Sales Manager Name Role Phone Ramos Salgado MD Primary Care Provider [phone] Source Comments [facility] [employer],non-owned Affiliates and Associated Physician Practices is amultiple site organization consisting of ambulatory clinics and hospital sitesin [place], [place], [place] and [place]. This disclosure is being madepursuant to the Care Everywhere program and may not contain all information available regarding this patient. Last updated 17.[facility] [employer] Allergies No known active allergies Medications * Be aware that medications may not be up to date on this document. Alwaysverify current medications with the patient. hydroxychloroquin e (PLAQUENIL) 200 MG tablet Take 1 (one) tablet by mouth 2 times daily 2 Active amLODIPine (NORVASC) 5 MG tablet TAKE 1 TABLET BY MOUTH ONCE DAILY . APPOINTMENT REQUIRED FOR FUTURE REFILLS 2 Active zolpidem (AMBIEN) 10 MG tablet Take 1 (one) tablet by mouth nightly as needed FOR SLEEP 2 Active dapsone (Dapsone) 100 MG tabletIndications :Discoid lupus,Lupus erythematosus tumidus Take 1 (one) tablet by mouth once daily 90 tablet 3 3 Active gabapentin (Neurontin) 300 MG capsule Take 2 (two) capsules by mouth 3 times daily 90 capsule 10 5 Active lisinopril-hydroC HLOROthiazide (Prinzide; Zestoretic) 20-12.5 MG tablet Take 1 (one) tablet by mouth once daily 5 Active predniSONE (Deltasone) 20 MG tablet Take 1 (one) tablet by mouth as needed 5 Active tacrolimus (Protopic) 0.1 % ointmentIndicatio ns:Discoid lupus erythematosus of eyelid, unspecified laterality Apply to eyelids up to two times daily as needed. 30 days supply. 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 However, if you're immunocompromised, one or more of those parts may not work correctly. As a result, your immune system doesn't work as efficiently as usual. Immunocompromised patients, must be careful not to weaken their immune system further. Emotional stress, lack of sleep, and physical exhaustion can all depress immunity, making an immunocompromised patient more susceptible to disease. Additionally, a healthy diet consisting of foods supporting immunity is marcus. In general, some other precautions include: o Proper and frequent handwashing o Proper buccal hygiene including taking care of teeth and gums o Avoiding crowds and people who are sick o Asking a healthcare provider about what vaccines are safe o Wash well all undercooked vegetables or fruit. o Do not eat or drink unpasteurized milk or dairy products. o Do not consume raw or undercooked products Follow up in: three months with Php Magento Developer Anemia, macrocytic 06/07/2023 Sensory neuropathy 02/05/2022 Routine health maintenance 12/11/2021 Overview (02/05/2022): Last Assessment & Plan: Condition: stable Follow up in: if symptoms worsen or fail to improve Abnormal serum protein electrophoresis 1 Major depressive disorder, recurrent, mild 01/01 Overview (02/05/2022): Last Assessment & Plan: Condition: stable No recent mental health visit. Advised to follow up Medications: Taking medications as prescribed If taking medications, do not stop treatment without consulting healthcare provider. If symptoms worsen or do not improve/stabilize, notify health care provider right away. If thoughts of harming self or others notify health care provider immediately &/or seek urgent/emergent care including calling [place] ( ) or 911. Follow up in if symptoms worsen or fail to improve with Psychologist/Counselor/SupportGroup/Psychiatrist and PCP Acute bilateral low back pain without sciatica 0 07/11/2018 BMI 29.0-29.9,adult 08/16/2017 Low vitamin D level 08/09/2017 Overview (02/05/2022): Last Assessment & Plan: Condition: stable Follow up in: if symptoms worsen or fail to improve Insomnia 08/01/2014 Overview (02/05/2022): Last Assessment & Plan: Condition: stable Follow up in: if symptoms worsen or fail to improve Discoid lupus 07/31/2014 Overview (02/05/2022): Last Assessment & Plan: Condition: stable Follow up in: if symptoms worsen or fail to improve Depression 07/03/2014 Peripheral neuropathy 04/27/2013 Essential hypertension 10/21/2011 Overview (02/05/2022): Last Assessment & Plan: Condition: stable Discussed target blood pressure. Continue medication as prescribed from PCP/specialist. Take medications at the same time every day. Lifestyle modification advised: DASH diet, reduce stress/anxiety, discussed health weight management, activity as tolerated or advised from PCP, try to avoid alcohol and nicotine. Follow up in: if symptoms worsen or fail to improve Encounters Date Type Department Care Team Description 11/17/2024 Telephone [facility]ph[facility] [address] [facility], [place] [address] Nano Ahuja, RN Results 11/01/2024 1:30 PM CDT Office Visit [facility] - Dermatology [address] [place] [phone] Dilcia Schumacher MD Post-inflammatory pigmentary changes (Primary Dx); Discoid lupus erythematosus of eyelid, unspecified laterality 11/01/2024 Travel 10/26/2024 Travel 10/25/2024 10:00 AM CDT Office Visit [facility] - Rheumatology [address] [place] [phone] Colten Avina MD Discoid lupus (Primary Dx); Lupus erythematosus tumidus; MALVIN positive; Complement deficiency (HCC) 10/25/2024 Travel 09/12/2024 Refill [facility] - Dermatology [address] [place] [phone] Dilcia Schumacher MD Refill Request 09/07/2024 Refill [facility] - Neurology [address] [place] [phone] Krystle San MD MEDICATION REFILL 09/06/2024 Refill [facility] - Neurology [address] [place] [phone] Krystle San MD Refill Request from Last 3 Months Immunizations Immunization Administration Dates Next Due INFLUENZA VACCINE 02/11/2017, 5,01/09/2014,2013 INFLUENZA VACCINE, QUADR. (F LUZONE; FLULAVAL; FLUARIX; AFLURIA QUADRIVALENT; 6MO+), 0.5 ML (IIV4) 02/11/2021 Influenza Intradermal 04/15/2012 Family History Medical History Relation Name Comments Arthritis - Osteo Maternal Grandmother Psoriasis Maternal Grandmother Relation Name Status Comments Maternal Grandmother Social History Tobacco Use Types Packs/Day Years Used Date Smoking Tobacco: Never Smokeless Tobacco: Never Tobacco Cessation:Counseling Given: Not Answered Alcohol Use Standard Drinks/Week Comments Never 0 (1 standard drink = 0.6 oz pur e alcohol) PHQ-2 Answer Date Recorded PHQ2 TOTAL SCORE 2 09/23/2022 Comments No Sex and Gender Information Value Date Recorded Sex Assigned at Not on file Legal Sex Female 12:00 PM CDT Gender Identity Not on file Sexual Orientation Not on file Last Filed Vital Signs Vital Sign Reading Time Taken Comments Blood Pressure 124/86 10/25/2024 9:50 AM CDT Pulse 105 10/25/2024 9:50 AM CDT Temperature 36.7 C (98 F) 11/29/2023 10:14 AM CDT Respiratory Rate - - Oxygen Saturation 95% 10/25/2024 9:50 AM CDT Inhaled Oxygen Concentration - - Weight 74.4 kg (164 lb) 10/25/2024 9:50 AM CDT Height 162.6 cm (5' 4) 10/25/2024 9:50 AM CDT Body Mass Index 28.15 10/25/2024 9:50 AM CDT Plan of Treatment Upcoming Encounters Date Type Department Care Team (Late st Contact Info) Description 01/04/2025 8:30 AM CDT Office Visit [facility] - Nephrology [address] [place] [phone] Christiano Harrison MD [address] [place] [address] 2L DIV OF NEPHROLOGY [address] 02/14/2025 1:40 PM FIXING CARPENTER [facility] [address] [place] [phone] Dilcia Schumacher MD [address] [place] [address] 3L DEPT OF DERMATOLOGY [phone] 03/06/2025 3:00 PM FIXING CARPENTER Office Visit [facility] - Neurology [address] [place] [phone] Krystle San MD [address] [place] [address] 1L DIV OF NEUROLOGY [phone] Health Maintenance Due Date Last Done Comments COLOGUARD (AGES 45-75) - COLON CA SCREENING 1964 COLON MONITORING 1964 COLONOSCOPY - COLON CA SCREENING 1964 CT COLONOGRAPHY - COLON CA SCREENING 1964 Colorectal Cancer Screening 1964 FIT - COLON CA SCREENING 1964 FLEX SIG - COLON CA SCREENING 1964 LIPID TESTING 1964 MENINGOCOCCAL GROUPS A/C/Y/W VACCINE (1 - Risk 2-dose series) 1966 MENINGOCOCCAL (Group B) VACCINE SHARED DECISION-MAKING (1 of 4 - Increased Risk) 1974 HEPATITIS C SCREENING 11/22/1982 DTAP/TDAP/TD VACCINES (1 - Tdap) 11/27/1983 PNEUMOCOCCAL VACCINE 50+ (1 of 2 - PCV) 11/27/1983 ZOSTER VACCINE (1 of 2) 11/27/1983 PAP SMEAR 1985 MAMMOGRAM 12/12/2021 12/13/2019, 12/13/2019 DEPRESSION SCREENING 04/05/2024 09/23/2022, 09/23/2022, 09/23/2022, Additional history exists Respiratory Syncytial Virus (RSV) Vaccine Pt: or over 60 yrs (1 - Risk 60-74 years 1-dose series) 2024 COVID-19 VACCINE ( - season) 2024 02/11/2021, 07/15/2020, 06/21/2020 INFLUENZA VACCINE (#1) 2024 1, 02/11/2017, 04/02/2015, Additional history exists SCREENING FOR DIABETES 05/25/2026 4, 05/04/2023, 09/23/2022, Additional history exists HIV SCREENING Completed 02/11/2021 HEPATITIS B VACCINE Aged Out No longe r eligible based on patient's age to complete this topic HIB VACCINE Aged Out No longer eligi ble based on patient's age to complete this topic HPV VACCINE Aged Out No longer eligi ble based on patient's age to complete this topic Procedures Procedure Name Priority Date/Time Associated Diagnosis Comments LAB RESULTS ORDER 10/31/2024 COMPREHENSIVE METABOLIC PANEL Routine 05/25/2023 11:04 AM [facility] Therapeutic drug monitoring from Last 3 Months or Most Recently Relevant to Health Maintenance Results * LAB RESULTS ORDER (10/31/2024) 10/31/2024 Narrative 10/31/2024 Ordered by an unspecified provider. us Scanned Document LAB - THERAPEUTIC DRUG MONITORI NG ORDERABLES Final Result * (ABNORMAL) COMPREHENSIVE METABOLIC PANEL (05/25/2023 11:04 AM [facility]) BUN 15 7 - 26 mg/dL 05/25/2023 11:45 AM [facility] Creatinine 1.26(H) 0.56 - 0.96 mg/dL 05/25/2023 11:45 AM [facility] Sodium 141 136 - 145 mmol/L 05/25/2023 11:45 AM [facility] Potassium 3.7 3.5 - 4.5 mmol/L 05/25/2023 11:45 AM [facility] Chloride 111(H) 98 - 107 mmol/L 05/25/2023 11:45 AM [facility] CO2 24 22 - 29 mmol/L 05/25/2023 11:45 AM [facility] Glucose 92 70 - 115 mg/dL 05/25/2023 11:45 AM [facility] Calcium 9.2 8.4 - 10.2 mg/dL 05/25/2023 11:45 AM [facility] Protein Total 6.3 6.0 - 8.3 g/dL 05/25/2023 11:45 AM [facility] Albumin 3.8 3.4 - 5.0 g/dL 05/25/2023 11:45 AM [facility] Bilirubin Total 0.3 0.2 - 1.2 mg/dL 05/25/2023 11:45 AM [facility] Alkaline Phosphatase 100 40 - 150 U/L 05/25/2023 11:45 AM [facility] ALT 28 5 - 55 U/L 05/25/2023 11:45 AM [facility] AST 37(H) 5 - 34 U/L 05/25/2023 11:45 AM [facility] Anion Gap 6 6 - 16 05/25/2023 11:45 AM [facility] BUN/Creatinine Ratio 12 7 - 23 05/25/2023 11:45 AM [facility] Osmolality Calculated 292 275 - 295 mOsm/kg 05/25/2023 11:45 AM [facility] Albumin/Globulin Ratio 1.5 1.1 - 2.3 05/25/2023 11:45 AM [facility] eGFR by CKD-EPI 49(L) >=90 mL/min/1.7 3 m2 05/25/2023 11:45 AM [facility] Blood BLOOD SPECIMEN / Unknown Lab Venipuncture / Unknown 05/25/2023 11:04 AM [facility] 05/25/2023 11:18 AM [facility] Elias Brady MD LAB - CHEMISTRY ORDERABLES Final Result Performing Organization Address City/State/[facility] Co de Phone Number [facility] [address] [place] [address], [place] [phone] from Last 3 Months or Most Recently Relevant to Health Maintenance Insurance [facility] Care Teams Mortgage Sales Manager Relationship Specialty Start Date End Date Ramos Salgado MD [address] [place] [id number] PCP - General 11/27/20
--- OUTSIDE RECORDS SUMMARY | 2024-12-05 14:43 | XMS_ITS | Encounter Summary ---
Author Organization [facility] Address [address] [facility] [address] Care Team Providers Care Executive Pastry Chef Name Role Phone Ramos Salgado MD Primary Care Provider [phone] Encounter Details Date Type Department Care Team (Late st Contact Info) Description 02/12/2023 Telephone [facility]rology [address] [place] [address], [place] [phone] Krystle San MD [address] [place] [address] [place] [phone] Social History Tobacco Use Types Packs/Day Years [...] on file documented as of this encounter Miscellaneous Notes * Telephone Encounter - Max Pepe MA - 02/12/2023 1:06 PM CST This patient is requesting a medication refill and was previously a patient of Dr. Jarquin. Could you please schedule a follow up appointment for this patient with Dr. San? MITH documented in this encounter Plan of Treatment Upcoming Encounters Date Type Department Care Team (Late st Contact Info) Description 01/04/2025 8:30 AM CDT [facility] Neph[facility] [address] [place] [phone] Christiano Harrison MD [address] [place] [address] 2L [place] [address] 02/14/2025 1:40 PM SAWSMITH [facility] [address] [place] [phone] Dilcia Schumacher MD [address] [place] [address] [address] [place] [phone] 03/06/2025 3:00 PM SAWSMITH [facility] [address] [place] [address], [place] [phone] Krystle San MD [address] [place] [address] 1L [place] [phone] documented as of this encounter Visit Diagnoses Not on filedocumented in this encounter Care Teams Executive Pastry Chef Relationship Specialty Start Date End Date Ramos Salgado MD [address] [place] [phone] PCP - General 11/27/20 documented as of this encounter
--- OUTSIDE RECORDS SUMMARY | 2024-12-05 14:43 | XMS_ITS | Encounter Summary ---
Author Organization [facility] Address formerly [facility] [place] [address] Care Team Providers Care Tool Planner Name Role Phone Ramos Salgado MD Primary Care Provider [phone] Reason for Visit * Reason Onset Date Comments Appointment Request 12/05/2024 Encounter Details Date Type Department Care Team (Late st Contact Info) Description 12/05/2024 Telephone [facility] Multispecialty Care - [facility] [address] [place] [phone] Hugo Ren MD [address] [facility] [address] [place] [address] Appointment Request Social History Tobacco Use Types Packs/Day Years Used Date Smoking Tobacco: Never Smokeless Tobacco: Never Alcohol Use Standard Drinks/Week Comments No 0 [...] Sex Assigned at Female 03/10/2018 11:16 AM ORGANIC PREPARATION ANALYST Legal Sex Female 7:29 PM CDT Gender Identity Female 03/10/2018 11:16 AM ORGANIC PREPARATION ANALYST Sexual Orientation Straight 03/10/2018 11 :16 AM ORGANIC PREPARATION ANALYST documented as of this encounter Progress Notes * oLre Heredia LPN - 12/05/2024 11:24 AM CDT Pt called and notified that no sooner appts were available. * Reba Don - 12/05/2024 8:41 AM CDT Patient says it is getting harder to swallow, is there any way her procedure date can be moved up Procedure date: 12/18/2024 documented in this encounter Plan of Treatment Upcoming Encounters Date Type Department Care Team (Late st Contact Info) Description 12/07/2024 1:00 PM CDT Office Visit [facility] [place] [address] [place] [address] Gabbie Marr DO [address] [facility] [address] 12/13/2024 10:00 AM CDT Office Visit [facility] [place] [address] [place] [phone] Ramos Salgado MD [facility] [place] [address] 12/18/2024 1:00 PM CDT Hospital Encounter [facility] [place] [address] Hugo Ren MD [address] [facility] [address] [place] [address] 12/18/2024 1:00 PM CDT - 12/18/2024 1:[address] [facility] [place] [address] Hugo Ren MD [address] [facility] [address] [place] [address] COLONOSCOPY SCREENING Scheduled Procedures Name Priority Associated Diagnoses Date/Ti me COLONOSCOPY SCREENING Dysphagia, unspecified type Chronic GERD Screening for colon cancer 12/18/2024 1:00 PM CDT EGD DX WITH BRUSH/WASH Dysphagia, unspecified type Chronic GERD Screening for colon cancer 12/18/2024 1:00 PM CDT documented as of this encounter Goals Goal Patient Goal Type Associated Problems Recent Progress Patient-Stated? Author Autogenera abdiel Goal Care Plan Autogenerated Problem No Anuradha Yarbrough [facility] documented as of this encounter Visit Diagnoses Not on filedocumented in this encounter Additional Health Concerns Active Problems Noted Date Diagnosed Date Autogenerated Problem 08/21/2024 Assessment Noted Time PHQ-9 Depression Total Score: 0 08/22/19 25 11:25 AM CDT documented as of this encounter Care Teams Tool Planner Relationship Specialty Start Date End Date Ramos Salgado MD [address] [place] [address] PCP - General 10/20/16 documented as of this encounter
--- OUTSIDE RECORDS SUMMARY | 2024-12-05 14:43 | XMS_ITS | Encounter Summary ---
Author Organization [facility] Address [address] [facility] [place] [address] Care Team Providers Care Catalyst Supervisor Name Role Phone Ramos Salgado MD Primary Care Provider [phone] Reason for Visit * Reason Comments Refill Request Encounter Details Date Type Department Care Team (Late st Contact Info) Description 09/12/2024 Refill [facility] Dermatology [address] [place] [address], [place] [address] Dilcia Schumacher MD [address] [place] [address] [address] [place] [address] Refill Request Social History Tobacco Use Types Packs/Day [...] encounter Miscellaneous Notes * Telephone Encounter - Arin Bowden RN - 09/13/2024 1:12 PM CDT Pt needs to schedule an appointment documented in this encounter Plan of Treatment Upcoming Encounters Date Type Department Care Team (Late st Contact Info) Description 01/04/2025 8:30 AM CDT Office Visit [facility] - Nephrology [address] [place] [address], [place] [phone] Christiano Harrison MD [address] [place] [address] 2L [place] [address] 02/14/2025 1:40 PM TYPING POOL SUPERVISOR Office Visit [facility] - Dermatology [address] [place] [address], [place] [phone] Dilcia Schumacher MD [address] [place] [address] [address] [place] [phone] 03/06/2025 3:00 PM TYPING POOL SUPERVISOR Office Visit [facility] - Neurology [address] [place] [address], [place] [address] Krystle San MD [address] [place] [address] 1[address] [place] [phone] documented as of this encounter Visit Diagnoses Diagnosis Discoid lupus erythematosus of eyelid, unspecified laterality documented in this encounter Care Teams Catalyst Supervisor Relationship Specialty Start Date End Date Ramos Salgado MD [address] [place] [phone] PCP - General 11/27/20 documented as of this encounter
--- NOTE | 2024-12-05 16:31 | ED.GENADULT ---
HPI - General Adult General Chief complaint: Unspecified <Maryan Moreland PA-C - Last Filed: 12/05/24 16:38> Stated complaint: i cant swallow <Maryan Moreland PA-C - Last Filed: 12/05/24 16:38> Time Seen by Provider: 12/05/24 16:31 <Maryan Moreland PA-C - Last Filed: 12/05/24 16:38> Focused HPI: Patient is a 59 y/o female who presents to the ED with c/o difficulty swallowing for the past 2 weeks. Patient reports having trouble keeping down food/solids, her home medications, even some fluids. States she has lost weight recently as she has not been able to eat normally. She is scheduled to see GI at [facility] for EGD on 12/18/2024, but felt she could not wait that long. Is on pantoprazole and reports compliance with this. Reports intermittent nausea, denies vomiting. Denies difficulty breathing. GENERAL: Well-appearing, well-nourished, and in no acute distress. HEAD: Normocephalic, atraumatic. CHEST: Clear to auscultation. ?No respiratory distress. HEART: Regular rate and rhythm.? NEURO: ?Alert and oriented x3. Patient screened in triage and initial orders placed.? ?Additional care and disposition to be based upon?diagnostic testing and treatment. <Maryan Moreland PA-C - Last Filed: 12/05/24 16:38> Source: patient <Maryan Moreland PA-C - Last Filed: 12/05/24 16:38> Mode of arrival: ambulatory <GENIA Darby Last Filed: 12/05/24 16:38> Limitations: no limitations <GENIA Darby Last Filed: 12/05/24 16:38> History of Present Illness HPI narrative: Agree with HPI <Ganga Boone MD - Last Filed: 12/06/24 01:41> Related Data Home medications: Home Medications ?Medication ?Instructions ?Recorded ?Confirmed ?Last Taken ?Type hydroxychloroquine 200 mg tablet 01/14/20 Unknown History lisinopril 20 tablet 01/14/20 Unknown History mg-hydrochlorothiazide 12.5 mg tablet amlodipine 5 mg tablet 12/24/20 Unknown History citalopram 20 mg tablet mg 12/24/20 Unknown History zolpidem 10 mg tablet 12/24/20 Unknown History <Maryan Moreland PA-C - Last Filed: 12/05/24 16:38> Allergies/adverse reactions: Allergies Allergy/AdvReac Type Severity Reaction Status Date / Time No Known Allergies Allergy Verified 02/07/23 09:44 <Maryan Moreland PA-C - Last Filed: 12/05/24 16:38> Review of Systems Review of Systems: Gen.: Denies fevers or chills Eyes: Denies eye pain or visual change ENT: Denies congestion Respiratory: Denies shortness of breath or cough CV: Denies chest pain or palpitations GI: As per HPI denies burning, urgency, frequency or hematuria Musculoskeletal: Denies back pain or muscle pain Neuro: Denies numbness, tingling, weakness or focal weakness Skin: Denies rash Except as documented, all other systems reviewed and negative <Ganga Boone MD - Last Filed: 12/06/24 01:41> [facility] Past Medical History Medical History: Medical History HTN (hypertension) Lupus <Maryan Moreland PA-C - Last Filed: 12/05/24 16:38> Family History Family History: Family History Mother Ovarian cancer <Maryan Moreland PA-C - Last Filed: 12/05/24 16:38> Exam Narrative: APPEARANCE: No acute distress, nontoxic, resting in bed HEENT: Normocephalic, atraumatic, OMM RESPIRATORY: No respiratory distress CARDIOVASCULAR: Appears well perfused ABDOMINAL: Nondistended, nontender, no rebound, guarding MUSCULOSKELETAl: Moves all extremities. No obvious deformities NEURO: Awake and alert. SKIN:: Warm, dry. No rashes lesions or abrasions PSYCHIATRIC: Normal affect/mood, <Ganga Boone MD - Last Filed: 12/06/24 01:41> Course Vital Signs Vital signs: Vital Signs Temperature 97.7 F 12/05/24 14:34 Pulse Rate 95 12/05/24 14:34 Respiratory Rate 16 12/05/24 14:34 Blood Pressure 136/76 12/05/24 14:34 Pulse Oximetry 99 12/05/24 14:34 Oxygen Delivery Room Air 12/05/24 14:34 Temperature 97.8 F 12/05/24 20:50 Pulse Rate 78 12/05/24 20:50 Respiratory Rate 18 12/05/24 20:50 Blood Pressure 116/79 12/05/24 20:50 Pulse Oximetry 98 12/05/24 20:50 Oxygen Delivery Room Air 12/05/24 14:34 <Maryan Moreland PA-C - Last Filed: 12/05/24 16:38> Vital Signs Temperature 97.7 F 12/05/24 14:34 Pulse Rate 95 12/05/24 14:34 Respiratory Rate 16 12/05/24 14:34 Blood Pressure 136/76 12/05/24 14:34 Pulse Oximetry 99 12/05/24 14:34 Oxygen Delivery Room Air 12/05/24 14:34 Temperature 97.8 F 12/05/24 20:50 Pulse Rate 78 12/05/24 20:50 Respiratory Rate 18 12/05/24 20:50 Blood Pressure 116/79 12/05/24 20:50 Pulse Oximetry 98 12/05/24 20:50 Oxygen Delivery Room Air 12/05/24 14:34 <Ganga Boone MD - Last Filed: 12/06/24 01:41> Medical Decision Making MDM Narrative Medical decision making narrative: MSE by LAURE in triage. <Maryan Moreland PA-C - Last Filed: 12/05/24 16:38> MSE by LAURE in triage. 59-year-old female who presents to the ED for dysphagia. On initial evaluation, patient in no acute distress, afebrile, hemodynamically stable. Heart and lungs are clear. Abdomen soft and nontender. Did a bedside swallow the patient was able to tolerate liquids but felt that it was getting caught. Unable to get a modified barium swallow at this time. Patient is set up for GI follow-up in 2 weeks but feels she cannot wait for that. She will be given referral to GI here. I suspect the patient does have a Schatzki's ring or other intra softened deal pathology that has been rapidly progressing that is not need immediate intervention to be followed up closely. Patient will call GI in the morning. She was advised to return for worsening symptoms. Patient was agreeable to this plan. <Ganga Boone MD - Last Filed: 12/06/24 01:41> Differential Diagnosis Differential Diagnosis: Food impaction, Schatzki ring, eosinophilic esophagitis <Ganga Boone MD - Last Filed: 12/06/24 01:41> Medical Records Medical records reviewed: Yes I reviewed the external patient's medical records. <Ganga Boone MD - Last Filed: 12/06/24 01:41> Vital Signs Vital Signs: Vital Signs Temperature 97.7 F 12/05/24 14:34 Pulse Rate 95 12/05/24 14:34 Respiratory Rate 16 12/05/24 14:34 Blood Pressure 136/76 12/05/24 14:34 Pulse Oximetry 99 12/05/24 14:34 Oxygen Delivery Room Air 12/05/24 14:34 Temperature 97.8 F 12/05/24 20:50 Pulse Rate 78 12/05/24 20:50 Respiratory Rate 18 12/05/24 20:50 Blood Pressure 116/79 12/05/24 20:50 Pulse Oximetry 98 12/05/24 20:50 Oxygen Delivery Room Air 12/05/24 14:34 <Maryan Moreland PA-C - Last Filed: 12/05/24 16:38> Vital Signs Temperature 97.7 F 12/05/24 14:34 Pulse Rate 95 12/05/24 14:34 Respiratory Rate 16 12/05/24 14:34 Blood Pressure 136/76 12/05/24 14:34 Pulse Oximetry 99 12/05/24 14:34 Oxygen Delivery Room Air 12/05/24 14:34 Temperature 97.8 F 12/05/24 20:50 Pulse Rate 78 12/05/24 20:50 Respiratory Rate 18 12/05/24 20:50 Blood Pressure 116/79 12/05/24 20:50 Pulse Oximetry 98 12/05/24 20:50 Oxygen Delivery Room Air 12/05/24 14:34 <Ganga Boone MD - Last Filed: 12/06/24 01:41> Discharge Plan Discharge Clinical Impression: Dysphagia <GENIA Darby Last Filed: 12/05/24 16:38> Patient Disposition: Home <GENIA Darby Last Filed: 12/05/24 16:38> Condition: Stable <GENIA Darby Last Filed: 12/05/24 16:38> Instructions: Antibiotic Form, Dysphagia (ED) <GENIA Darby Last Filed: 12/05/24 16:38> Additional Instructions: continue to take small sips of water especially with the medications. Your given a referral to [facility], call their office in the morning and let them know your symptoms have progressed over the past 2 weeks and that you were seen in the ED for this. Return to the ED for new or worsening symptoms, including if you are no longer able to tolerate water <GENIA Darby Last Filed: 12/05/24 16:38> Patient Language: Lithuanian <GENIA Darby Last Filed: 12/05/24 16:38> Prescriptions: No Action amlodipine 5 mg tablet citalopram 20 mg tablet zolpidem 10 mg tablet acetaminophen-codeine 300-30 mg tablet 1 - 1.5 tablet PO Q8H PRN (Reason: pain) Qty: 15 0RF lisinopril-hydrochlorothiazide 20-12.5 mg tablet hydroxychloroquine 200 mg tablet <GENIA Darby Last Filed: 12/05/24 16:38> Follow-up/Referrals: Damian,Ramos Aranda MD [Primary Care Provider] <GENIA Darby Last Filed: 12/05/24 16:38>
--- NOTE | 2024-12-05 20:23 | PC.NURSE ---
water given to pt per ERP to do PO trial.
--- OUTSIDE RECORDS SUMMARY | 2024-12-05 20:46 | XMS_ITS | Encounter Summary ---
Author Organization [facility] Address [address] [facility] [place] [address] Care Team Providers Care Tank Refinisher Name Role Phone Ramos Salgado MD Primary Care Provider [phone] Encounter Details Date Type Department Care Team (Late Contact Info) Description 05/25/2024 Telephone [facility] - Centralized Scheduling [facility] [place] [phone] Elias Brady MD [address] [place] [phone] Social History Tobacco Use Types Packs/Day Years [...] Upcoming Encounters Date Type Department Care Team ([facility] Contact Info) Description 01/04/2025 8:30 AM CDT Office Visit [facility] - Nephrology [address] [place] [address], [place] [phone] Christiano Harrison MD [address] [place] [address] [place] [address] 02/14/2025 1:40 PM CHIEF MEDIA OFFICER Office Visit [facility] - Dermatology [address] [place] [address], [place] [phone] Dilcia Schumacher MD [address] [place] [address] 3L [place] [phone] 03/06/2025 3:00 PM CHIEF MEDIA OFFICER Office Visit [facility] - Neurology [address] [place] [address], [place] [phone] Krystle San MD [address] [place] [address] 1L [place] [phone] documented as of this encounter Visit Diagnoses Not on filedocumented in this encounter Care Teams Tank Refinisher Relationship Specialty Start Date End Date Ramos Salgado MD [address] [place] [phone] PCP - General 11/27/20 documented as of this encounter
--- OUTSIDE RECORDS SUMMARY | 2024-12-05 20:46 | XMS_ITS | Encounter Summary ---
Author Organization [facility] Address [address] [facility] [place] [address] Care Team Providers Care Nail Welter Name Role Phone Ramos Salgado MD Primary Care Provider [phone] Encounter Details Date Type Department Care Team (Late st Contact Info) Description 02/12/2023 Telephone [facility] - Neurology [address] [place] [address], [place] [address] Krystle San MD [address] [place] [address] [place] [phone] Social History Tobacco Use Types Packs/Day Years [...] appointment for this patient with Dr. San? IN CAREGIVER documented in this encounter Plan of Treatment Upcoming Encounters Date Type Department Care Team (Late st Contact Info) Description 01/04/2025 8:30 AM CDT Office Visit [facility] - Nephrology [address] [place] [phone] Christiano Harrison MD [address] [place] [address] 2L [place] [address] 02/14/2025 1:40 PM LIVE IN CAREGIVER [facility] Derm[facility] [address] [place] [phone] Dilcia Schumacher MD [address] [place] [address] 3L [place] [phone] 03/06/2025 3:00 PM LIVE IN CAREGIVER [facility]rology [address] [place] [address], [place] [phone] rKystle San MD [address] [place] [address] 1L [place] [phone] documented as of this encounter Visit Diagnoses Not on filedocumented in this encounter Care Teams Nail Welter Relationship Specialty Start Date End Date Ramos Salgado MD [address] [place] [address] PCP - General 11/27/20 documented as of this encounter
--- OUTSIDE RECORDS SUMMARY | 2024-12-05 20:46 | XMS_ITS | Encounter Summary ---
Author Organization [facility] Address [address] [facility] [place] [address] Care Team Providers Care Dinkey Press Operator Name Role Phone Ramos Salgado MD Primary Care Provider [phone] Reason for Visit * Reason Comments Refill Request Encounter Details Date Type Department Care Team (Late st Contact Info) Description 09/12/2024 Refill [facility] - Dermatology [address] [place] [address], [facility] [place] [address] Dilcia Schumacher MD [address] [place] [address] 3 [place] [address] Refill Request Social History Tobacco [...] Description 01/04/2025 8:30 AM CDT Office Visit [facility] - Nephrology [address] [place] [address], [place] [address] Christiano Harrison MD [address] [place] [address] 2L [place] [address] 02/14/2025 1:40 PM HYDROELECTRIC STATION CHIEF Office Visit [facility] - Dermatology [address] [place] [address], [place] [address] Dilcia Schumacher MD [address] [place] [address] 3L [place] [phone] 03/06/2025 3:00 PM HYDROELECTRIC STATION CHIEF Office Visit [facility] - Neurology [address] [place] [address], [place] [address] Krystle San MD [address] [place] [address] 1L [place] [phone] documented as of this encounter Visit Diagnoses Diagnosis Discoid lupus erythematosus of eyelid, unspecified laterality documented in this encounter Care Teams Dinkey Press Operator Relationship Specialty Start Date End Date Ramos Salgado MD [address] [place] [phone] PCP - General 11/27/20 documented as of this encounter
[2024-12-05 20:50] VITALS: BP 116/79; PULSE 78; RESP 18; TEMP 36.6; O2SAT 98
== END 2024-12-05 20:53 | disposition home or self-care (01) ==
LOC: ANHED 20:44
PROVIDERS: Emergency Provider Student in an Organized Health Care Education/Training Program; PCP Internal Medicine
DX: R13.10 Dysphagia, unspecified (principal); I10 Essential (primary) hypertension; M32.9 Systemic lupus erythematosus, unspecified; Z79.899 Other long term (current) drug therapy
CPT/HCPCS: 99281

== ENCOUNTER 2024-12-25 09:12 | Outpatient (CLI) | payer OTHER, SELFPAY ==
--- NOTE | ~2024-12-25 | MM_ITS ---
EXAMINATION: MM screening milana BI w enmanuel HISTORY: Screening TECHNIQUE: Craniocaudal and mediolateral oblique 3-D tomosynthesis images were obtained and synthetic 2-D images were generated. CAD analysis was submitted and interpreted. COMPARISON: None provided BREAST PARENCHYMAL COMPOSITION: There are scattered areas of fibroglandular density. FINDINGS: There is no evidence of suspicious mass, calcification, or architectural distortion to suggest malignancy in either breast. IMPRESSION: 1. No mammographic evidence of malignancy. 2. Recommend routine screening mammography in one year. BI-RADS Category 1: Negative Reviewed, dictated and finalized at location B.
--- OUTSIDE RECORDS SUMMARY | 2024-12-25 10:01 | XMS_ITS | Clinical Summary ---
Author Organization [email or web address] Address [address] [place] [address] Care Team Providers Care Drill Runner Helper Name Role Phone Ramos Salgado MD Primary Care Provider [phone] Source Comments [email or web address],non-owned Affiliates and Associated Physician Practices is amultiple site organization consisting of ambulatory clinics and hospital sitesin [place], [place], [place] and [place]. This disclosure is being madepursuant to the Care Everywhere program and may not contain all information available regarding this patient. 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 Follow up in [...] Telephone [facility] - Nephrology [address] [facility], [place] [address] Nano Ahuja, RN Results 11/01/2024 1:30 PM CDT Office Visit [facility] - Dermatology [address] [place] [address], [place] [address] Dilcia Schumacher MD Post-inflammatory pigmentary changes (Primary Dx); Discoid lupus erythematosus of eyelid, unspecified laterality 11/01/2024 Travel 10/26/2024 Travel 10/25/2024 10:00 AM CDT Office Visit [facility] - Rheumatology [address] [place] [address], [facility] [place] [address] Colten Avina MD Discoid lupus (Primary Dx); Lupus erythematosus tumidus; MALVIN positive; Complement deficiency (HCC) 10/25/2024 Travel from Last 3 Months Immunizations Immunization Administration [...] Description 01/04/2025 8:30 AM CDT Office Visit [facility] - Nephrology [address] [place] [address], [place] [phone] Christiano Harrison MD [address] [place] [address] 2L [place] [address] 02/14/2025 1:40 PM BEEF BREAKER Office Visit [facility] - Dermatology [address] [place] [phone] Dilcia Schumacher MD [address] [place] [address] 3L [place] [phone] 03/06/2025 3:00 PM BEEF BREAKER Office Visit [facility] - Neurology [address] [place] [phone] Krystle San MD [address] [place] [address] 1L [place] [phone] Health Maintenance Due Date Last Done Comments [...] 60-74 years 1-dose series) 2024 COVID-19 VACCINE (4 - 2024- season) 2024 02/11/2021, 07/15/2020, 06/21/2020 INFLUENZA VACCINE [...] COMPREHENSIVE METABOLIC PANEL Routine 05/25/2023 11:04 AM BEEF BREAKER Therapeutic drug monitoring from Last 3 Months or Most Recently Relevant to Health Maintenance Results * LAB RESULTS ORDER (10/31/2024) 10/31/2024 Narrative 10/31/2024 Ordered by an unspecified provider. us Scanned Document LAB - THERAPEUTIC DRUG MONITORI NG ORDERABLES Final Result * (ABNORMAL) COMPREHENSIVE METABOLIC PANEL (05/25/2023 11:04 AM BEEF BREAKER) BUN 15 7 - 26 mg/dL 05/25/2023 11:45 AM [facility] Creatinine 1.26(H) 0.56 - 0.96 mg/dL 05/25/2023 11:45 AM [facility] Sodium 141 136 - 145 mmol/L 05/25/2023 11:45 AM [facility] Potassium 3.7 3.5 - 4.5 mmol/L 05/25/2023 11:45 AM [facility] Chloride 111(H) 98 - 107 mmol/L 05/25/2023 11:45 AM [facility] CO2 24 22 - 29 mmol/L 05/25/2023 11:45 AM [facility] Glucose 92 70 - 115 mg/dL 05/25/2023 11:45 AM [facility] Calcium 9.2 8.4 - 10.2 mg/dL 05/25/2023 11:45 AM [facility] Protein Total 6.3 6.0 - 8.3 g/dL 05/25/2023 11:45 AM [facility] Albumin 3.8 3.4 - 5.0 g/dL 05/25/2023 11:45 AM [facility] Bilirubin Total 0.3 0.2 - 1.2 mg/dL 05/25/2023 11:45 AM [facility] Alkaline Phosphatase 100 40 - 150 U/L 05/25/2023 11:45 AM [facility] ALT 28 5 - 55 U/L 05/25/2023 11:45 AM [facility] AST 37(H) 5 - 34 U/L 05/25/2023 11:45 AM [facility] Anion Gap 6 6 - 16 05/25/2023 11:45 AM [facility] BUN/Creatinine Ratio 12 7 - 23 05/25/2023 11:45 AM [facility] Osmolality Calculated 292 275 - 295 mOsm/kg 05/25/2023 11:45 AM [facility] Albumin/Globulin Ratio 1.5 1.1 - 2.3 05/25/2023 11:45 AM [facility] eGFR by CKD-EPI 49(L) >=90 mL/min/1.7 3 m2 05/25/2023 11:45 AM BEEF BREAKER [facility] Blood BLOOD SPECIMEN / Unknown Lab Venipuncture / Unknown 05/25/2023 11:04 AM BEEF BREAKER 05/25/2023 11:18 AM BEEF BREAKER Elias Brady MD LAB - CHEMISTRY ORDERABLES Final Result Performing Organization Address [facility]/State/[facility] Co de Phone Number [facility] [address] [place] [address], [facility] [phone] from Last 3 Months or Most Recently Relevant to Health Maintenance Insurance [facility] Care Teams Drill Runner Helper Relationship Specialty Start Date End Date Ramos Salgado MD [address] [place] [id number] [facility] - General 11/27/20
--- OUTSIDE RECORDS SUMMARY | 2024-12-25 10:01 | XMS_ITS | Encounter Summary ---
Author Organization [facility] Address [address] [facility] [place] [address] Care Team Providers Care Gamer Name Role Phone Ramos Salgado MD Primary Care Provider [phone] Encounter Details Date Type Department Care Team (Late Contact Info) Description 05/25/2024 Telephone [facility] - Centralized Scheduling [facility] [place] [phone] Elias Brady MD [address] [place] [phone] Social History Tobacco Use Types Packs/Day Years [...] Upcoming Encounters Date Type Department Care Team ([facility] Contact Info) Description 01/04/2025 8:30 AM CDT Office Visit [facility] - Nephrology [address] [place] [address], [place] [phone] Christiano Harrison MD [address] [place] [address] [place] [address] 02/14/2025 1:40 PM EDUCATION DIAGNOSTICIAN Office Visit [facility] - Dermatology [address] [place] [address], [place] [phone] Dilcia Schumacher MD [address] [place] [address] [address] [place] [phone] 03/06/2025 3:00 PM EDUCATION DIAGNOSTICIAN Office Visit [facility] - Neurology [address] [place] [address], [place] [phone] Krystle San MD [address] [place] [address] 1L [place] [phone] documented as of this encounter Visit Diagnoses Not on filedocumented in this encounter Care Teams Gamer Relationship Specialty Start Date End Date Ramos Salgado MD [address] [place] [address] PCP - General 11/27/20 documented as of this encounter
--- OUTSIDE RECORDS SUMMARY | 2024-12-25 10:01 | XMS_ITS | Encounter Summary ---
Author Organization [facility] Address [address] [facility] [place] [address] Care Team Providers Care Office Support Assistant Name Role Phone Ramos Salgado MD Primary Care Provider [phone] Encounter Details Date Type Department Care Team (Late st Contact Info) Description 02/12/2023 Telephone [facility] - Neurology [address] [place] [address], [place] [address] Krystle San MD [address] [place] [address] [place] [phone] Social History Tobacco Use Types Packs/Day Years [...] appointment for this patient with Dr. San? RNMENT DOCUMENTS LIBRARIAN documented in this encounter Plan of Treatment Upcoming Encounters Date Type Department Care Team (Late st Contact Info) Description 01/04/2025 8:30 AM CDT Office Visit [facility] - Nephrology [address] [place] [phone] Christiano Harrison MD [address] [place] [address] 2L [place] [address] 02/14/2025 1:40 PM GOVERNMENT DOCUMENTS LIBRARIAN [facility] [address] [place] [phone] Dilcia Schumacher MD [address] [place] [address] 3L [place] [phone] 03/06/2025 3:00 PM GOVERNMENT DOCUMENTS LIBRARIAN [facility]rology [address] [place] [address], [place] [phone] Krystle San MD [address] [place] [address] 1L [place] [phone] documented as of this encounter Visit Diagnoses Not on filedocumented in this encounter Care Teams Office Support Assistant Relationship Specialty Start Date End Date Ramos Salgado MD [address] [place] [address] PCP - General 11/27/20 documented as of this encounter
== END 2024-12-25 09:13 | disposition home or self-care (01) ==
LOC: ANHFOHIMG 09:14
PROVIDERS: PCP Internal Medicine; Visit Provider Internal Medicine
DX: Z12.31 Encounter for screening mammogram for malignant neoplasm of breast (principal)
CPT/HCPCS: 77063; 77067